=== PATIENT | male | born 1955 | race Hispanic/Latino ===

== ENCOUNTER → 2021-03-14 | Outpatient (CLI) | payer OTHER | END | disposition home or self-care (01) | LOC: RAH 10:00 | PROVIDERS: ATTEND Internal Medicine | DX: Z00.5 Encounter for examination of potential donor of organ and tissue (principal); C79.51 Secondary malignant neoplasm of bone; R94.31 Abnormal electrocardiogram [ECG] [EKG]; R53.1 Weakness | CPT/HCPCS: 78452; 93017; 96374; A9500 ×2 ==

== ENCOUNTER → 2021-03-20 | Outpatient (CLI) | payer OTHER | END | disposition home or self-care (01) | LOC: SHCH 15:08 → EDUNIT# 15:30 | PROVIDERS: ATTEND Internal Medicine | DX: I51.7 Cardiomegaly (principal) | CPT/HCPCS: 93306; 93356 ==

== ENCOUNTER → 2022-02-06 | Outpatient (CLI) | payer OTHER | END | disposition home or self-care (01) | LOC: RAH 13:00 | PROVIDERS: ATTEND Internal Medicine | DX: J90 Pleural effusion, not elsewhere classified (principal); E78.5 Hyperlipidemia, unspecified; I31.39 Other pericardial effusion (noninflammatory); I08.0 Rheumatic disorders of both mitral and aortic valves; I13.10 Hypertensive heart and chronic kidney disease without heart failure, with stage 1 through stage 4 chronic kidney disease, or unspecified chronic kidney disease; E11.22 Type 2 diabetes mellitus with diabetic chronic kidney disease; N18.9 Chronic kidney disease, unspecified | CPT/HCPCS: 93306 ==

== ENCOUNTER → 2022-12-21 | Outpatient (CLI) | payer OTHER ==
[~2022-12-21] MED LIST: AMIO200T68 PO; AMLO-258 PO; ATOR40TA69 PO; FOLI1TAB85 PO; FURO40TA5 PO; IBUP-2070 PO; METO50TA18 PO; MINOXIDIL PO; TAMS-1 PO
== END | disposition home or self-care (01) ==
LOC: RAH 08:17
PROVIDERS: ATTEND Student in an Organized Health Care Education/Training Program
DX: R94.31 Abnormal electrocardiogram [ECG] [EKG] (principal)
CPT/HCPCS: 78452; 96374; 93017; A9500 ×2

== ENCOUNTER → 2023-09-02 | Outpatient (CLI) | payer OTHER | END | disposition home or self-care (01) | LOC: SHCH 07:42 | PROVIDERS: ATTEND Student in an Organized Health Care Education/Training Program | DX: I08.3 Combined rheumatic disorders of mitral, aortic and tricuspid valves (principal); E78.5 Hyperlipidemia, unspecified; I10 Essential (primary) hypertension; E11.9 Type 2 diabetes mellitus without complications | CPT/HCPCS: 93306 ==

== ENCOUNTER → 2023-09-10 | Outpatient (CLI) | payer OTHER | END | disposition home or self-care (01) | LOC: SHCH 10:02 | PROVIDERS: ATTEND Student in an Organized Health Care Education/Training Program | DX: Z03.89 Encounter for observation for other suspected diseases and conditions ruled out (principal) | CPT/HCPCS: 93978 ==

== ENCOUNTER → 2023-09-16 | Outpatient (CLI) | payer OTHER ==
[2023-09-16] MEDS: REGADENOSON 0.4 MG/5 ML PF SYG IVP ONE (14:45)
== END | disposition home or self-care (01) ==
LOC: SHCH 09:29
PROVIDERS: ATTEND Student in an Organized Health Care Education/Training Program
DX: Z94.0 Kidney transplant status (principal)
CPT/HCPCS: 78452; 96374; 93017; J2785; A9500 ×2

== ENCOUNTER → 2024-01-31 | Outpatient (CLI) | payer OTHER ==
[~2024-01-31] MED LIST changes: -AMIO200T68 PO; -ATOR40TA69 PO; -IBUP-2070 PO; +IOHEXOL 350 MG/ML 100ML INFUS..BTL IV ONE; +METO25TA6 PO; -METO50TA18 PO; -MINOXIDIL PO; +OXYGEN NASAL
== END | disposition home or self-care (01) ==
LOC: RAH 10:54
PROVIDERS: ATTEND Student in an Organized Health Care Education/Training Program
DX: I70.0 Atherosclerosis of aorta (principal); I35.0 Nonrheumatic aortic (valve) stenosis; J90 Pleural effusion, not elsewhere classified; J98.11 Atelectasis
CPT/HCPCS: 74174; 75574; Q9967

== ENCOUNTER 2024-06-29 12:25 | Day surgery (SDC) | payer OTHER ==
[2024-06-25 11:54] LABS: BASOPHILS # (AUTO) 0.06 K/uL (0.00-0.20); EOSINOPHILS # (AUTO) 0.08 K/uL (0.00-0.70); EOSINOPHILS % (AUTO) 1.4 % (0.0-8.0); HEMATOCRIT 41.3 % (42-54); IMMATURE GRANULOCYTE ABSOLUTE 0.04 K/uL (0-1); LYMPHOCYTES % (AUTO) 16.9 % (21.0-51.0); MEAN CORPUSCULAR HEMOGLOBIN 27.6 pg (27.0-33.0); MEAN CORPUSCULAR HGB CONC 30.5 g/dL (32.0-36.0); MEAN CORPUSCULAR VOLUME 90.4 fL (79-99); MONOCYTES # (AUTO) 0.6 K/uL (0.1-1.0); MONOCYTES % (AUTO) 9.9 % (3.0-13.0); NEUTROPHILS % (AUTO) 70.1 % (40.0-77.0); PLATELET COUNT (AUTO) 213 K/uL (130-400); RED BLOOD CELL COUNT(AUTO) 4.57 MIL/uL (4.50-6.20); RED CELL DISTRIBUTION WIDTH 16.5 % (11.0-15.5); WHITE BLOOD COUNT (AUTO) 5.7 K/uL (4.8-10.8)
[2024-06-25 11:57] LABS: INR 1.04 (0.85-1.15)
[2024-06-25 11:58] LABS: PARTIAL THROMBOPLASTIN TIME 50.7 SEC (26.3-35.5)
[2024-06-25 12:11] VITALS: BP 104/55; PULSE 65; RESP 18; TEMP 98.1
--- NOTE | 2024-06-25 12:29 | EKG ---
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
[2024-06-25 12:38] LABS: B-TYPE NATRIURETIC PEPTIDE 503 pg/mL (0-100)
--- NOTE | 2024-06-25 14:12 | HMCIMG ---
CHEST 1VW HISTORY: [facility] – [place] COMPARISON: 06/15/2024 FINDINGS: A frontal projection of the chest was obtained. Mild bilateral pulmonary infiltrates are seen may be related to mild pulmonary vascular congestion with possible superimposed pneumonitis. Small right pleural effusion is seen. The heart is borderline enlarged. All the lines and tubes are again seen in place. No evidence of aortic calcification is seen. IMPRESSION: 1. Mild bilateral pulmonary infiltrates are seen may be related to mild pulmonary vascular congestion with possible superimposed pneumonitis. Small right pleural effusion.
--- NOTE | 2024-06-26 13:38 | NUR ---
report reported bnp/cxr/dialysis resceduled for sat/ left arm preservation to dr freddie camacho. ok to proceed and ok tot ion right arm for procedure.
[~2024-06-29] VITALS: Ht 162.6 cm; Wt 61.6 kg
[~2024-06-29 12:25] MED LIST changes: +0.9% NACL 500ML IV.SOLN 500 ML IV ONE; -IOHEXOL 350 MG/ML 100ML INFUS..BTL IV ONE; +MINO2.5T3 PO; +SIMV40TA59 PO
[2024-06-29 13:43] VITALS: BP 111/59; PULSE 64; RESP 18; TEMP 98.6
[2024-06-29] MEDS ORDERED: LIDOCAINE HCL 400MG/20ML VIAL ONE (14:18)
[2024-06-29] MEDS ORDERED: VERAPAMIL HCL 2.5 MG/ML VIAL ONE (14:18)
[2024-06-29] MEDS ORDERED: IOHEXOL 350 MG/ML 100ML INFUS..BTL IV ONE ×2 (14:18→16:18)
[2024-06-29] MEDS ORDERED: HEParin-NS 1,000 UNIT/500 ML 1,000 ML IV ONE (14:19)
[2024-06-29] MEDS ORDERED: HEParin 10,000 UNIT/10ML (1,000 UNIT/ML) VIAL ONE (14:19)
[2024-06-29] MEDS ORDERED: NITROGLYCERIN 50MG VIAL ONE (14:19)
[2024-06-29] MEDS ORDERED: FENTanyl CITRate PF 50 MCG/1 ML 2ML VIAL ONE (14:33)
[2024-06-29] MEDS ORDERED: MIDAZOLAM HCL 1 MG/ML 2ML VIAL ONE ×2 (14:33→16:05)
[2024-06-29] MEDS ORDERED: cloPIDOgrel 300MG TAB ONE (14:57)
[2024-06-29] MEDS ORDERED: ASPIRIN 325MG EC TAB PO ONE (14:57)
[2024-06-29] MEDS ORDERED: HEParin-NS 1,000 UNIT/500 ML 500 ML IV ONE (15:17)
[2024-06-29] MEDS ORDERED: hydrALAZine 20MG/ML VIAL ONE (17:21)
--- NOTE | 2024-06-29 17:23 | PRN ---
PROCEDURE REPORT DATE OF PROCEDURE: Jun 29, 2024 BOARD ATTENDANT: [PAMELA DUNAWAY MD ] PROCEDURE PERFORMED: Conscious sedation Ultrasound guided right radial artery access Selective left coronary artery angiogram Left heart catheterization IVUS of the left main and LAD IVL/shockwave lithotripsy of the left main and prox LAD (3 x 12 mm) Status post successful staged IVUS guided PTCA/IVL and PCI of the left main into mid LAD x2 overlapping stents (3 x 30 mm and 3.5 x 26 mm jessica Leelanau drug- eluting stents) Prox to mid LAD was post dilated to 4 mm and left main was post dilated to 4.5 mm TR band 13 celina over right radial artery INDICATION: Severe aortic stenosis and critical left main to LAD disease who presented for staged revascularization as patient was turned down by CV surgery and was deemed too high-risk due to uncontrolled type 2 diabetes and Jehovah Witness status (unable to transfused PRBC) DESCRIPTION OF PROCEDURE: After informed consent was obtained, the patient was prepped and draped in the usual sterile fashion. A 6 Cuban arterial sheath was inserted in the right radial artery using ultrasound guidance with first pass wall puncture. The arterial sheath was aspirated and flushed. A JR-4 was advanced over the wire under fluoroscopic guidance and was advanced into the LV and pressures were obtained with a pull-back across the aortic valve. We did not perform selective right coronary angiogram as patient's anatomy was known from recent coronary angiogram. Due to patient's significant subclavian tortuosity we exchanged the short arterial sheath for a 75 cm are 2p sheath which was advanced into the ascending aorta under fluoroscopic guidance. We then advanced a six Cuban XB three guide over the wire and was used to select engage the left main coronary artery. We provided a total of 6000 units of IV heparin, 600 mg of Plavix and 324 of aspirin and falling therapeutic ACT we advanced a Prowater into the distal LAD under fluoroscopic guidance. We exchanged the Prowater wire for a more supportive iron man using a FineCross microcatheter. We then removed the FineCross microcatheter after placement of the Ironman and then we used a 014 runthrough which was advanced into the distal OM2 under fluoroscopic guidance. At this time we pre-dilated the mid LAD proximal LAD and left main using a 2.5 x 20 mm compliant balloon to 14 and 16 CELINA respectively. We then proceeded with IVUS imaging of the LAD and left main to delineate lesion morphology and sizing. We then proceeded with shockwave lithotripsy using a 3 x 12 mm shockwave balloon which was inflated to two and four CELINA in the mid LAD serially, and four and six CELINA in the proximal LAD as well as left main. We then deployed a 3 x 30 mm jessica Leelanau drug-eluting stent within the prox to mid LAD to 14 CELINA. We then deployed a 3.5 x 26 mm jessica Leelanau drug-eluting stent which was deployed from the left main extending into the proximal LAD in overlapping fashion to 16 CELINA. We then post dilated the mid LAD stent using a 3 x 20 mm noncompliant balloon to 16 CELINA respectively. We then post dilated the left main stent with a 4 x 20 mm noncompliant balloon to 14 and 16 CELINA. Repeat IVUS imaging revealed stent under assessment in the prox to mid LAD as well as the left main. We then performed repeat post dilatation using a 4 mm balloon within the proximal LAD to nominal pressures and super nominal pressures 18 CELINA in the left main. We then performed proximal optimization technique of the left main using a 4.5 x 8 mm noncompliant balloon to 14 and 16 CELINA. We provided a total of 200 mcg of intracoronary nitroglycerin and final angiographic image revealed pentecostal of FEDERICO three flow with no dissections or perforations. At this time all wires and catheters removed from the body and A TR band was placed over right radial artery. Patient tolerated procedure well with no postprocedure complications transferred to tin can laborer holding in stable condition FLUOROSCOPY TIME: 38.2 min LEFT HEART HEMODYNAMICS: LVEDP 15 mm Hg and no gradient Ao CORONARY ANGIOGRAM: LEFT MAIN: Heavily calcified with diffuse mid to distal 50% stenosis. LEFT ANTERIOR DESCENDING: Large vessel giving rise to two Diagonal branches. T heavily calcified with 90% ostial stenosis followed by 70 80% proximal LAD stenosis. Diagonals are patent with mild diffuse disease LEFT CIRCUMFLEX: Large and gives rise to two OM branches. Calcified with 20-30% proximal stenosis RIGHT CORONARY ARTERY: RCA was not studied as it is noted to be patent from recent angiogram performed three-month prior HEMOSTASIS: TR band 12 celina over right radial artery INTERVENTIONS: Status post successful staged IVUS guided PTCA/IVL and PCI of the left main into mid LAD x2 overlapping stents (3 x 30 mm and 3.5 x 26 mm jessica Leelanau drug- eluting stents) Prox to mid LAD was post dilated to 4 mm and left main was post dilated to 4.5 mm COMPLICATIONS: None FINDINGS: Normal coronary anatomy and severe obstructive left main into ostial LAD disease status post successful IVUS guided revascularization ESTIMATED BLOOD LOSS: 5 cc RECOMMENDATIONS/INSTRUCTIONS: Aggressive risk factor modification in addition to dap (aspirin 81 mg q.d ay/Plavix 75 mg q.day) in addition high-intensity statin therapy Patient will follow up 1-2 weeks post discharge and will plan for TAVR evaluation. CONTRAST DELIVERED TO PATIENT (mL): 265cc PAMELA Wilde MD, MD Jun 29, 2024 17:23
[2024-06-29] MEDS ORDERED: GLUCAGON 1MG KIT 1 MG ML IM PRN (17:30)
[2024-06-29] MEDS ORDERED: 0.9%NACL 1000ML 1,000 ML IV SCH (17:30)
[2024-06-29] MEDS ORDERED: DEXTROSE 50%-WATER 50 ML DISP.SYRIN IV PRN (17:30)
[2024-06-29 18:00] VITALS: BP 150/53; PULSE 81; RESP 13; TEMP 97.5
--- NOTE | 2024-06-29 19:50 | NUR ---
VASC BAND: VASC BAND REMOVED WITH NO ACTIVE BLEEDING PRESENT. CLEANSED AREA WITH CHLORAPREP FOLLOWED BY APPLYING STERILE 2X2 GAUZE THAN 2X2 TEGADERM. NO REDNESS/SWELLING NOTED TO SURROUNDING AREA.
[2024-06-29 20:20] VITALS: BP 129/42; PULSE 79; RESP 12; TEMP 97.6
--- NOTE | 2024-06-30 06:35 | EKG ---
[facility] Test Date: 2024-06-29 Test Time: 18:31:37 Pat Name: RADHA BAKER [facility] Room: Gender: M Infrastructure Project Manager: [id number] : 1955 Requested By: PAMELA DUNAWAY Order Number: [id number] Reading MD: Jeff Almendarez Measurements Intervals [place] Rate: 78 P: 28 [place]: 128 QRS: 44 QRSD: 87 T: 55 QT: 399 QTc: 456 Interpretive Statements Sinus rhythm Probable left atrial enlargement Compared to ECG 06/25/2024 12:23:11 No significant changes Electronically Signed On 07-01-2024 12:44:25 HOSPITAL ADMINISTRATOR by Jeff Almendarez Please click the below link to view image of tracing.
[2024-06-30] MEDS ORDERED: cloPIDOgrel 75MG TAB PO SCH (09:00)
== END 2024-06-29 20:20 | disposition home or self-care (01) ==
LOC: DAH 12:25
PROVIDERS: ATTEND Student in an Organized Health Care Education/Training Program
DX: I25.118 Atherosclerotic heart disease of native coronary artery with other forms of angina pectoris (principal); I35.0 Nonrheumatic aortic (valve) stenosis; E11.9 Type 2 diabetes mellitus without complications; E78.5 Hyperlipidemia, unspecified; I48.92 Unspecified atrial flutter; I25.84 Coronary atherosclerosis due to calcified coronary lesion; I12.0 Hypertensive chronic kidney disease with stage 5 chronic kidney disease or end stage renal disease; N18.6 End stage renal disease; I31.4 Cardiac tamponade; I71.40 Abdominal aortic aneurysm, without rupture, unspecified; E66.9 Obesity, unspecified; Z79.899 Other long term (current) drug therapy; Z68.24 Body mass index [BMI] 24.0-24.9, adult; Z98.890 Other specified postprocedural states
CPT/HCPCS: 80048; 83880; 85025; 85610; 85730; 36415 ×2; 71045; 93005 ×2; 93458; 92978; 92979; 92972; 85347 ×3; 82948; C9600 ×2; Q9965 ×3; C1887 ×3; C1769 ×4; C1725 ×4; C1874 ×2; C1894; A4649; C1761; C1753; J7040; J3010; J3490 ×3; J0360; J1644 ×3; J2250 ×2; Q9967 ×2; A4215; A4222; A4221; A4663; A4216; A4606; A4223 ×3; 99156; 99157